=== PATIENT | male | born 2000 | race Hispanic/Latino ===

== ENCOUNTER 2023-04-08 17:46 | Emergency (ER) | payer SELFPAY ==
[2023-04-08] MEDS ORDERED: Acetaminophen 500 MG TAB ONE (18:01)
[2023-04-08] MEDS ORDERED: Ondansetron ODT 4 MG TAB ONE (18:51)
== END 2023-04-08 18:56 | disposition home or self-care (01) ==
LOC: NAV ERS 17:46
DX: J10.1 Influenza due to other identified influenza virus with other respiratory manifestations (principal)
CPT/HCPCS: 71045; 87804; Q0162